=== PATIENT | female | born 1985 | race Caucasian/White ===

== ENCOUNTER 2018-10-17 11:03 | Emergency (ER) | payer BC, OTHER ==
[2018-10-17 11:09] VITALS: TEMP 98.2
--- NOTE | 2018-10-17 11:34 | ED ---
General Adult HPI <Jarrell Vargas - Last Filed: 10/17/18 14:48> - General Source: patient, RN notes reviewed Mode of arrival: ambulatory Limitations: no limitations <Zach Carr - Last Filed: 10/17/18 15:04> - General Chief complaint: Abdominal Pain Stated complaint: poss miscarriage Time Seen by Provider: 10/17/18 11:11 - History of Present Illness Initial comments: Patient 33-year-old female who is G4, P3, approximate 6 weeks by last menstrual cycle, presenting to the emergency room today with chief complaint of abdominal cramping. Patient does admit that she's had this cramping throughout the . She states she follow-up to [facility] and had an an ultrasound earlier in the week. States did not see anything on ultrasound and did not match up with her hCG levels so they have been trending up. She states she had a decrease in hCG. She does admit that she felt some chills last night and was concerned so she came here to the emergency room. She denies any other complaints. Denies any vaginal bleeding or discharge. States cramping is consistent with cramping that she's had throughout the . Patient denies any recent fever, shortness of breath, chest pain, back pain, vomiting, numbness or tingling, headaches or visual changes, or any other complaints. ( Zach Carr) - Related Data Home Medications Medication Instructions Recorded Confirmed Pnv,Calcium 72/Iron/Folic Acid 1 tab PO DAILY 10/17/18 10/17/18 [ Plus Tablet] Allergies Allergy/AdvReac Type Severity Reaction Status Date / Time No Known Allergies Allergy Verified 10/17/18 11:47 Review of Systems ROS Other: All systems not noted in ROS Statement are negative. <Jarrell Vargas - Last Filed: 10/17/18 14:48> ROS Other: All systems not noted in ROS Statement are negative. <Zach Carr - Last Filed: 10/17/18 15:04> ROS Statement: Those systems with pertinent positive or pertinent negative responses have been documented in the HPI. Past Medical History Past Medical History: No Reported History History of Any Multi-Drug Resistant Organisms: None Reported Past Surgical History: No Surgical Hx Reported Past Psychological History: No Psychological Hx Reported Smoking Status: Current every day smoker Past Alcohol Use History: Occasional <Zach Carr - Last Filed: 10/17/18 15:04> General Exam <Jarrell Vargas - Last Filed: 10/17/18 14:48> Limitations: no limitations <Zach Carr - Last Filed: 10/17/18 15:04> - General Exam Comments Initial Comments: General: The patient is awake and alert, in no distress, and does not appear acutely ill. Neck: The neck is supple, there is no tenderness or JVD. Cardiovascular: There is a regular rate and rhythm. No murmur, rub or gallop is appreciated. Respiratory: Lungs are clear to auscultation, respirations are non-labored, breath sounds are equal. No wheezes, stridor, rales, or rhonchi. Gastrointestinal: Soft, non-distended, non-tender abdomen without masses or organomegaly noted. There is no rebound or guarding present. No CVA tenderness. Musculoskeletal: Normal ROM, no tenderness. Neurological: A&O x 3. CN II-XII intact, There are no obvious motor or sensory deficits. Coordination appears grossly intact. Speech is normal. Skin: Skin is warm and dry and no rashes or lesions are noted. Psychiatric: Cooperative, appropriate mood & affect, normal judgment. (Zach Carr) Course <Jarrell Vargas - Last Filed: 10/17/18 14:48> <Zach Carr - Last Filed: 10/17/18 15:04> Vital Signs 10/17/18 10/17/18 11:06 13:55 Temperature 98.2 F Pulse Rate 86 66 Respiratory 16 16 Rate Blood Pressure 118/78 117/68 O2 Sat by Pulse 97 99 Oximetry - Reevaluation(s) Reevaluation #1: 10/17/18 14:48 Patient reevaluated by myself, Dr. Vargas. Patient resting comfortably in bed. Abdomen soft and nontender. Patient states she only had mild cramping earlier. No bleeding. Case was discussed in detail with Dr. Dukes who feels patient is safe for discharge home and recommends follow-up Friday with Dr. Jimenez. Dr. Stock also questions the accuracy of beta hCG level in the specific patient. ( Jarrell Vargas) Medical Decision Making - Lab Data Result diagrams: 10/17/18 11:45 10/17/18 11:45 <Jarrell Vargas - Last Filed: 10/17/18 14:48> - Lab Data Result diagrams: 10/17/18 11:45 10/17/18 11:45 <Zach Carr - Last Filed: 10/17/18 15:04> - Lab Data Lab Results 10/17/18 10/17/18 10/17/18 Range/Units 11:45 11:45 11:45 WBC 7.2 (3.8-10.6) k/uL RBC 4.58 (3.80-5.40) m/uL Hgb 14.4 (11.4-16.0) gm/dL Hct 42.6 (34.0-46.0) % MCV 93.1 (80.0-100.0) fL MCH 31.5 (25.0-35.0) pg MCHC 33.8 (31.0-37.0) g/dL RDW 12.3 (11.5-15.5) % Plt Count 275 (150-450) k/uL Neutrophils % 52 % Lymphocytes % 32 % Monocytes % 6 % Eosinophils % 6 % Basophils % 1 % Neutrophils # 3.8 (1.3-7.7) k/uL Lymphocytes # 2.3 (1.0-4.8) k/uL Monocytes # 0.5 (0-1.0) k/uL Eosinophils # 0.4 (0-0.7) k/uL Basophils # 0.1 (0-0.2) k/uL Sodium 140 (137-145) mmol/L Potassium 4.2 (3.5-5.1) mmol/L Chloride 108 H (98-107) mmol/L Carbon Dioxide 22 (22-30) mmol/L Anion Gap 10 mmol/L BUN 12 (7-17) mg/dL Creatinine 0.52 (0.52-1.04) mg/dL Est GFR (CKD-EPI)AfAm >90 (>60 ml/min/1.73 sqM) Est GFR (CKD-EPI)NonAf >90 (>60 ml/min/1.73 sqM) Glucose 98 (74-99) mg/dL Calcium 9.8 (8.4-10.2) mg/dL Total Bilirubin 0.6 (0.2-1.3) mg/dL AST 34 (14-36) U/L ALT 59 H (9-52) U/L Alkaline Phosphatase 45 (38-126) U/L Total Protein 7.5 (6.3-8.2) g/dL Albumin 4.6 (3.5-5.0) g/dL HCG, Quant 95990.3 mIU/mL Urine Color Urine Appearance (Clear) Urine pH (5.0-8.0) Ur Specific [place] (1.001-1.035) Urine Protein (Negative) Urine Glucose (UA) (Negative) Urine Ketones (Negative) Urine Blood (Negative) Urine Nitrite (Negative) Urine Bilirubin (Negative) Urine Urobilinogen (<2.0) mg/dL Ur Leukocyte Esterase (Negative) Urine RBC (0-5) /hpf Urine WBC (0-5) /hpf Ur Squamous Epith Cells (0-4) /hpf Urine Bacteria (None) /hpf Urine Mucus (None) /hpf Blood Type O Positive Blood Type Recheck [facility] ONLY 10/17/18 Range/Units 11:45 WBC (3.8-10.6) k/uL RBC (3.80-5.40) m/uL Hgb (11.4-16.0) gm/dL Hct (34.0-46.0) % MCV (80.0-100.0) fL MCH (25.0-35.0) pg MCHC (31.0-37.0) g/dL RDW (11.5-15.5) % Plt Count (150-450) k/uL Neutrophils % % Lymphocytes % % Monocytes % % Eosinophils % % Basophils % % Neutrophils # (1.3-7.7) k/uL Lymphocytes # (1.0-4.8) k/uL Monocytes # (0-1.0) k/uL Eosinophils # (0-0.7) k/uL Basophils # (0-0.2) k/uL Sodium (137-145) mmol/L Potassium (3.5-5.1) mmol/L Chloride (98-107) mmol/L Carbon Dioxide (22-30) mmol/L Anion Gap mmol/L BUN (7-17) mg/dL Creatinine (0.52-1.04) mg/dL Est GFR (CKD-EPI)AfAm (>60 ml/min/1.73 sqM) Est GFR (CKD-EPI)NonAf (>60 ml/min/1.73 sqM) Glucose (74-99) mg/dL Calcium (8.4-10.2) mg/dL Total Bilirubin (0.2-1.3) mg/dL AST (14-36) U/L ALT (9-52) U/L Alkaline Phosphatase (38-126) U/L Total Protein (6.3-8.2) g/dL Albumin (3.5-5.0) g/dL HCG, Quant mIU/mL Urine Color Yellow Urine Appearance Cloudy H (Clear) Urine pH 6.0 (5.0-8.0) Ur Specific [place] 1.029 (1.001-1.035) Urine Protein Trace H (Negative) Urine Glucose (UA) Negative (Negative) Urine Ketones Trace H (Negative) Urine Blood Negative (Negative) Urine Nitrite Negative (Negative) Urine Bilirubin Negative (Negative) Urine Urobilinogen 3.0 (<2.0) mg/dL Ur Leukocyte Esterase Large H (Negative) Urine RBC 6 H (0-5) /hpf Urine WBC 5 (0-5) /hpf Ur Squamous Epith Cells 11 H (0-4) /hpf Urine Bacteria Occasional H (None) /hpf Urine Mucus Few H (None) /hpf Blood Type Blood Type Recheck Disposition <Jarrell Vargas - Last Filed: 10/17/18 14:48> Is patient prescribed a controlled substance at d/c from ED?: No Time of Disposition: 15:04 <Zach Carr - Last Filed: 10/17/18 15:04> Clinical Impression: Threatened Disposition: HOME SELF-CARE Condition: Good Instructions: Threatened Miscarriage (ED) Additional Instructions: Please use medication as discussed. Please follow-up with family doctor in the next 2 days of symptoms have not improved. Please return to emergency room if the symptoms increase or worsen or for any other concerns. Referrals: Skylar Adhikari DO [Primary Care Provider] - 1-2 days Cierra Jimenez MD [STAFF PHYSICIAN] - 1-2 days
[2018-10-17 12:16] LABS: Basophils # (A) 0.1 k/uL (0-0.2); Basophils % (A) 1 %; Eosinophils # (A) 0.4 k/uL (0-0.7); Eosinophils % (A) 6 %; HCT 42.6 % (34.0-46.0); HGB 14.4 gm/dL (11.4-16.0); Lymphocytes # (A) 2.3 k/uL (1.0-4.8); Lymphocytes % (A) 32 %; MCH 31.5 pg (25.0-35.0); MCHC 33.8 g/dL (31.0-37.0); MCV 93.1 fL (80.0-100.0); Mean Platelet Volume 7.1; Monocytes # (A) 0.5 k/uL (0-1.0); Monocytes % (A) 6 %; Neutrophils # (A) 3.8 k/uL (1.3-7.7); Neutrophils % (A) 52 %; Platelet Count 275 k/uL (150-450); RBC 4.58 m/uL (3.80-5.40); RDW 12.3 % (11.5-15.5); WBC 7.2 k/uL (3.8-10.6)
[2018-10-17 12:23] LABS: Appearance,Urine Cloudy (Clear); Bacteria,Urine Occasional /hpf; Bilirubin,Urine Negative (Negative); Blood,Urine Negative (Negative); Color,Urine Yellow; Glucose,Urine (UA) Negative (Negative); Ketones,Urine Trace (Negative); Leukocyte Esterase,Urine Large (Negative); Mucus,Urine Few /hpf; Nitrite,Urine Negative (Negative); Protein,Urine Trace (Negative); RBC,Urine 6 /hpf (0-5); Specific Gravity,Urine 1.029 (1.001-1.035); Squamous Epithelial Cell,Urine 11 /hpf (0-4)
[2018-10-17 12:24] LABS: ALT 59 U/L (9-52); AST 34 U/L (14-36); Albumin 4.6 g/dL (3.5-5.0); Alkaline Phosphatase 45 U/L (38-126); Anion Gap 10 mmol/L; Blood Urea Nitrogen 12 mg/dL (7-17); Calcium 9.8 mg/dL (8.4-10.2); Carbon Dioxide 22 mmol/L (22-30); Chloride 108 mmol/L (98-107); Glucose 98 mg/dL (74-99); Potassium 4.2 mmol/L (3.5-5.1); Sodium 140 mmol/L (137-145); Total Bilirubin 0.6 mg/dL (0.2-1.3); Total Protein 7.5 g/dL (6.3-8.2)
--- NOTE | 2018-10-17 12:51 | US ---
EXAMINATION TYPE: Transabdominal DATE OF EXAM: 02/03/18 COMPARISON: NONE CLINICAL HISTORY: Pain. EXAM PERFORMED: Transvaginal (TV) and Transabdominal (TA) EXAM MEASUREMENTS: GESTATIONAL AGE / DATING Physician Established: (6 weeks/3 days) EDC: 06/09/2019 Dates by LMP: (7 weeks/2 days) EDC: 06/03/2019 Dates by First Scan: No previous this is first scan Dates by Current Scan for: (6 weeks/1 days) EDC: 06/11/2019 MATERNAL ANATOMY Uterus: 8.9 x 5.3 x 6.7 cm; Anteverted Right Ovary: 4.2 x 2.4 x 2.3 cm; hypoechoic area measuring 1.9 x 0.9 x 1.7 cm possibly corpus luteum cyst versus other etiology Left Ovary: 3.3 x 1.8 x 1.5 cm; wnl Post CDS / Adnexa: wnl Presence of free fluid: no Presence of corpus luteal cyst: possibly right ovary hypoechoic area measuring 1.9 x 0.9 x 1.7 cm Presence of subchorionic bleed: yes; 1.3 x 0.5 x 1.4 cm GESTATION / SURVEY CRL: 0.5 cm (6 weeks/1 days) MSD: 1.8 cm (6 weeks/1 days) Yolk Sac (normal less than 6mm): not seen Heart Rate: not identified IUP: Questionable Demise versus early gestation Date of LMP: 08/27/2018 Beta HcG (if available): Not available at this time IMPRESSION: INABILITY TO DETECT A HEARTBEAT FETUS OF 6 WEEKS 1 DAY LIKELY REFLECTS DEMISE.
[2018-10-17 13:26] LABS: HCG,Quantitative Serum 25050.3 mIU/mL
[2018-10-17 15:31] VITALS: BP 109/73; PULSE 81; RESP 18
== END 2018-10-17 15:25 | disposition home or self-care (01) ==
LOC: EC 11:03
DX: O20.0 Threatened abortion (principal); O99.331 Smoking (tobacco) complicating pregnancy, first trimester; F17.200 Nicotine dependence, unspecified, uncomplicated; Z3A.01 Less than 8 weeks gestation of pregnancy
CPT/HCPCS: 36415; 76801; 76817; 80053; 81001; 84702; 85025; 86900; 86901; 99284

== ENCOUNTER 2018-11-04 10:26 | Day surgery (SDC) | payer BC, OTHER ==
[2018-10-30 10:58] VITALS: BMI 23.9
[~2018-11-04 10:26] MED LIST: DEXAMETHASONE SOD PHOSPHATE 10 MG/ML 1 ML VIAL IV ONE; HYDROmorphone 0.5 MG/0.5 ML SYRINGE IVP PRN; LACTATED RINGERS 1,000 ML IV SCH; LIDOCAINE 1% 20 ML VIAL (10MG/ML) FOR IV START INTRADERMA PRN; ONDANSETRON 4 MG/2 ML VIAL IVP ONE; Pre Op ABX Message 1 EACH MISC MISCELLANE ONE; SCOPOLAMINE 1.5MG/72HR PATCH TRANSDERM ONE
[2018-11-04] MEDS ORDERED: KETOROLAC 30 MG/ML 1 ML VIAL ONE (12:02)
[2018-11-04] MEDS ORDERED: MIDAZOLAM 2 MG/2 ML VIAL ONE (12:02)
[2018-11-04] MEDS ORDERED: PROPOFOL 10 MG/ML 20 ML VIAL IV ONE (12:02)
[2018-11-04] MEDS ORDERED: fentaNYL (PF) 50 MCG/ML 2 ML AMP ONE (12:02)
[2018-11-04] MEDS ORDERED: SODIUM CHLORIDE 0.9% 1,000 ML IV ONE (12:31)
[2018-11-04 12:40] VITALS: RESP 16; TEMP 98
--- NOTE | 2018-11-04 12:57 | OP ---
OPERATIVE REPORT DATE OF PROCEDURE: 11/04/2018 PREOPERATIVE DIAGNOSES: 1. Missed AB at 6 weeks' gestation. 2. Rh positive blood type. POSTOPERATIVE DIAGNOSIS: Pathology pending. PROCEDURE: Suction dilatation and curettage of the uterine cavity. SURGEON: Cierra Jimenez MD RADIOISOTOPE TECHNICIAN: None. ESTIMATED BLOOD LOSS: 100 mL. FLUID REPLACEMENT: 400 mL crystalloid. Urine 125 mL. FINDINGS: Multiparous cervix, uterus anteverted, anteflexed, 8 week size. No intrauterine defects noted. Blood type O-positive. PROCEDURE DESCRIPTION: Patient was brought to the operating suite where a general anesthetic is administered without difficulty. She is placed in the dorsal lithotomy position. The cervix, vagina, perineal bodies are all prepped and draped in the usual sterile fashion. The appropriate time-out was performed to ensure proper patient and procedural identification. The anterior lip of the cervix was grasped with a double toothed tenaculum. Cervix sounds to a depth of 11 cm in the anteverted position. The cervix is gently and systematically dilated using Hanks dilators, very little resistance is noted. The uterus was curettaged thoroughly with a #8 curved dural curette with appropriate suction pressure. A moderate amount of tissue was sent to pathology for evaluation. All sponge, needle, and instrument counts were correct at the end of the procedure. Patient is brought back to the recovery room in very good condition with stable vital signs including blood pressure 102/49, pulse 65. Toradol was given prior to leaving the operative suite. Patient will follow up with me in the office in 2 weeks. MMODL / IJN: [id number] /
[2018-11-04 13:14] VITALS: BP 116/71; PULSE 86
== END 2018-11-04 13:38 | disposition home or self-care (01) ==
LOC: OR 10:26
PROVIDERS: ATTEND Obstetrics & Gynecology
DX: O02.1 Missed abortion (principal); O41.1410 Placentitis, first trimester, not applicable or unspecified; F17.200 Nicotine dependence, unspecified, uncomplicated
CPT/HCPCS: 86900; 86901; 88305; 86850; 59820; J2250; J1100; J2405; J3010; J1885; J2704

== ENCOUNTER → 2018-11-04 | Outpatient (CLI) | payer BC, OTHER ==
[2018-11-04 10:37] LABS: Basophils # (A) 0.1 k/uL (0-0.2); Basophils % (A) 1 %; Eosinophils # (A) 0.4 k/uL (0-0.7); Eosinophils % (A) 7 %; HCT 40.8 % (34.0-46.0); HGB 13.3 gm/dL (11.4-16.0); Lymphocytes # (A) 2.2 k/uL (1.0-4.8); Lymphocytes % (A) 34 %; MCH 30.9 pg (25.0-35.0); MCHC 32.6 g/dL (31.0-37.0); MCV 94.7 fL (80.0-100.0); Mean Platelet Volume 6.7; Monocytes # (A) 0.3 k/uL (0-1.0); Monocytes % (A) 4 %; Neutrophils # (A) 3.4 k/uL (1.3-7.7); Neutrophils % (A) 52 %; Platelet Count 328 k/uL (150-450); RBC 4.31 m/uL (3.80-5.40); RDW 12.6 % (11.5-15.5); WBC 6.5 k/uL (3.8-10.6)
== END | disposition home or self-care (01) ==
LOC: LABPAT 10:05
PROVIDERS: ATTEND Obstetrics & Gynecology
DX: Z01.812 Encounter for preprocedural laboratory examination (principal); O03.9 Complete or unspecified spontaneous abortion without complication
CPT/HCPCS: 36415; 85025

== ENCOUNTER → 2020-11-27 | Outpatient (CLI) | payer BC ==
[2020-11-28 01:58] LABS: Follicle Stimulating Hormone 3.3 mIU/mL; Luteinizing Hormone 2.8 mIU/mL
[2020-11-28 01:59] LABS: Estradiol 23.3 pg/mL
== END | disposition home or self-care (01) ==
LOC: LABWHC1 15:55
PROVIDERS: ATTEND Obstetrics & Gynecology Obstetrics
DX: E34.9 Endocrine disorder, unspecified (principal)
CPT/HCPCS: 36415; 82670; 83001; 83002; 84144

== ENCOUNTER → 2021-02-12 | Outpatient (CLI) | payer BC | END | disposition home or self-care (01) | LOC: LABWHC1 11:57 | PROVIDERS: ATTEND Obstetrics & Gynecology Obstetrics | DX: Z32.01 Encounter for pregnancy test, result positive (principal) | CPT/HCPCS: 36415; 84144; 84702 ==

== ENCOUNTER → 2021-02-15 | Outpatient (CLI) | payer BC | END | disposition home or self-care (01) | LOC: LABWHC1 12:59 | PROVIDERS: ATTEND Obstetrics & Gynecology Obstetrics | DX: Z32.01 Encounter for pregnancy test, result positive (principal); Z3A.00 Weeks of gestation of pregnancy not specified | CPT/HCPCS: 36415; 84702 ==

== ENCOUNTER 2021-04-13 22:24 | Emergency (ER) | payer BC ==
[2021-04-13 22:38] VITALS: TEMP 98
[2021-04-13] MEDS ORDERED: SODIUM CHLORIDE 0.9% 500 ML 500 ML IV STA (22:52)
[2021-04-13] MEDS ORDERED: SODIUM CHLORIDE 0.9% 1,000 ML IV STA (22:52)
[2021-04-13 23:58] LABS: HCT 38.6 % (34.0-46.0); HGB 12.9 gm/dL (11.4-16.0); MCH 31.2 pg (25.0-35.0); MCHC 33.4 g/dL (31.0-37.0); MCV 93.4 fL (80.0-100.0); Mean Platelet Volume 7.7; Platelet Count 368 k/uL (150-450); RBC 4.13 m/uL (3.80-5.40); RDW 13.1 % (11.5-15.5); WBC 11.4 k/uL (3.8-10.6)
--- NOTE | 2021-04-14 01:04 | US ---
EXAM: US First Trimester , Transabdominal CLINICAL HISTORY: ITS.REASON US Reason: possible miscarriage TECHNIQUE: Real-time transabdominal obstetrical ultrasound of the maternal pelvis and a first trimester with image documentation. COMPARISON: No relevant prior studies available. FINDINGS: Gestation: Single live intrauterine measuring 12 weeks 3 days with heart rate of 153 bpm. Placenta/amniotic fluid: Cannot be adequately evaluated due to the early gestational age. Uterus/cervix: Unremarkable as visualized. Ovaries: Query right corpus luteum. Free fluid: No significant free fluid. IMPRESSION: Single live intrauterine measuring 12 weeks 3 days. <MYCVCSECTION> Communications: 04/14/21 02:02 Call From [facility] on 04/14 01:55 (-04:00)
--- NOTE | 2021-04-14 02:08 | ED ---
Female Urogenital HPI - General Chief complaint: Vaginal Bleeding Stated complaint: 13 Wks preg, Vaginal Bleeding Time Seen by Provider: 04/13/21 22:51 Source: patient Mode of arrival: ambulatory Limitations: no limitations - History of Present Illness Initial comments: This patient is a 36-year-old woman who presents to be evaluated for vaginal bleeding that had started this evening. The patient states she had had a little bit of cramping prior to this. Patient obstetric history is G5, P3, with 1 miscarriage at 9 weeks. She believes she is proximally 13 weeks . The patient denies fever or chills, chest pain, palpitations, dyspnea. No abdominal pain other than the mild cramps. No change in urination or bowel movements. MD Complaint: vaginal bleeding Onset/Timin -: hour(s) Severity: mild Quality: cramping Improves with: none Worsens with: none Last Menstrual Period: 01/09/21 - Related Data Home Medications Medication Instructions Recorded Confirmed Pnv,Calcium 72/Iron/Folic Acid 1 tab PO DAILY 10/17/18 10/30/18 [ Plus Tablet] Allergies Allergy/AdvReac Type Severity Reaction Status Date / Time No Known Allergies Allergy Verified 04/13/21 22:38 Review of Systems ROS Statement: Those systems with pertinent positive or pertinent negative responses have been documented in the HPI. ROS Other: All systems not noted in ROS Statement are negative. Constitutional: Denies: fever, chills Respiratory: Denies: cough, dyspnea Cardiovascular: Denies: chest pain, palpitations, orthopnea, edema, syncope Gastrointestinal: Reports: as per HPI, abdominal pain, constipation. Denies: nausea, vomiting, diarrhea, melena, hematochezia Genitourinary: Reports: as per HPI. Denies: dysuria, frequency, hematuria Musculoskeletal: Denies: back pain Skin: Denies: rash Neurological: Denies: headache, weakness, numbness Hematological/Lymphatic: Denies: easy bleeding Past Medical History Past Medical History: No Reported History Additional Past Medical History / Comment(s): missed ,hx heart murmur as infant,gestational diabetes with prior pregnancies History of Any Multi-Drug Resistant Organisms: None Reported Past Surgical History: No Surgical Hx Reported Past Anesthesia/Blood Transfusion Reactions: No Reported Reaction, Family History of Problems w/ Anesthesia, Motion Sickness Additional Past Anesthesia/Blood Transfusion Reaction / Comment(s): no hx of general anesthesia or blood transfusion,mother and brother have a hard time waking with anesthesia Past Psychological History: No Psychological Hx Reported Smoking Status: Former smoker Past Alcohol Use History: None Reported Past Drug Use History: None Reported - Past Family History Mother Family Medical History: No Reported History General Exam Limitations: no limitations General appearance: alert, in no apparent distress Head exam: Present: atraumatic, normocephalic Eye exam: Present: normal appearance. Absent: scleral icterus, conjunctival in jection Respiratory exam: Present: normal lung sounds bilaterally. Absent: respiratory distress, wheezes, rales, rhonchi, stridor Cardiovascular Exam: Present: regular rate, normal rhythm, normal heart sounds. Absent: systolic murmur, diastolic murmur, rubs, gallop GI/Abdominal exam: Present: soft. Absent: distended, tenderness, guarding, rebound, rigid, mass, pulsatile mass, hernia External exam: Present: normal external exam. Absent: erythema, swelling, lesions, lacerations, ecchymosis Speculum exam: Present: vaginal bleeding (There was one clot that was larger t noonan golf ball sized and mod amount of dark blood in the vaginal vault.). Absent: cervical discharge, foreign body, tissue, laceration By manual exam: Present: normal by manual exam, uterine enlargement (C/W 12 weeks), other (YOSEF mack). Absent: cervical motion tenderness, adnexal tenderness, adnexal mass, uterine tenderness Extremities exam: Present: normal inspection, normal capillary refill. Absent: pedal edema, calf tenderness Back exam: Present: normal inspection. Absent: CVA tenderness (R), CVA ten derness (L) Neurological exam: Present: alert Skin exam: Present: warm, dry, intact, normal color. Absent: rash Course Vital Signs 04/13/21 04/14/21 22:35 02:23 Temperature 98.0 F Pulse Rate 73 78 Respiratory 18 20 Rate Blood Pressure 121/79 134/84 O2 Sat by Pulse 97 98 Oximetry Medical Decision Making - Medical Decision Making Patient is a 36-year-old woman presenting with first trimester bleeding. There was no active bleeding on the exam. The patient cervix is closed to fingertip diameter at the os. The ultrasound normal. Discussed appropriate further care and follow-up for threatened miscarriage, as well as return parameters. - Lab Data Result diagrams: 04/13/21 23:42 Lab Results 04/13/21 04/13/21 Range/Units 23:42 23:42 WBC 11.4 H (3.8-10.6) k/uL RBC 4.13 (3.80-5.40) m/uL Hgb 12.9 (11.4-16.0) gm/dL Hct 38.6 (34.0-46.0) % MCV 93.4 (80.0-100.0) fL MCH 31.2 (25.0-35.0) pg MCHC 33.4 (31.0-37.0) g/dL RDW 13.1 (11.5-15.5) % Plt Count 368 (150-450) k/uL MPV 7.7 HCG, Quant 057363.0 mIU/mL Disposition Clinical Impression: Threatened Disposition: HOME SELF-CARE Condition: Good Instructions (If sedation given, give patient instructions): Threatened Miscarriage (ED) Is patient prescribed a controlled substance at d/c from ED?: No Referrals: Nonstaff,Physician [Primary Care Provider] - 1-2 days
[2021-04-14 02:24] VITALS: BP 134/84; PULSE 78; RESP 20
== END 2021-04-14 02:36 | disposition home or self-care (01) ==
LOC: EC 22:24
DX: O20.0 Threatened abortion (principal); Z3A.13 13 weeks gestation of pregnancy; Z87.891 Personal history of nicotine dependence
CPT/HCPCS: 36415; 76801; 84702; 85027; 99284

== ENCOUNTER 2021-10-09 17:10 | Outpatient (CLI) | payer BC ==
[2021-10-09 18:25] VITALS: BP 122/59; PULSE 84; RESP 18; TEMP 98.1
--- NOTE | 2021-11-23 09:29 | P.MSEPDOC ---
Presenting Problems - Arrival Data Date of Arrival on Unit: 10/09/21 Time of Arrival on Unit: 17:10 Mode of Transport: Ambulatory - Complaint OB-Reason for Admission/Chief Complaint: Rule Out SROM Comment: pt reports leaking x2 day with "bigger gush" today around 1500. Medical History - Information : 5 Para: 3 Term: 3 : 0 Abortions: Spontaneous or Elective: 0 Number of Living Children: 3 - Gestational Age Gestational Age by MILIND (wks/days): 38 Weeks and 4 Days Review of Systems - Review of Systems Constitutional: No problems Breast: No problems ENT: No problems Cardiovascular: No problems Respiratory: No problems Gastrointestinal: No problems Genitourinary: No problems Musculoskeletal: No problems Neurological: No problems Skin: No problems Vital Signs - Temperature Temperature: 98.1 F Temperature Source: Oral - Pulse Right Pulse Rate: 84 Pulse Assessment Method: Pulse Oximetry - Respirations Respiratory Rate: 18 Oxygen Delivery Method: Room Air O2 Sat by Pulse Oximetry: 100 - Blood Pressure Right Arm Blood Pressure: 122/59 Blood Pressure Mean: 80 Blood Pressure Source: Automatic Cuff Medical Screen Scoring - Cervical Exam Dilation (cm): 5 Effacement (%): 50 Station: -3 Membranes: Intact - Assessment - Baby A Baseline FHR: 140 Heart Rate - NICHD Category: Category I (Normal) NST: Reactive Physician Notification - Physician Notified Physician Notified Date: 10/09/21 Physician Notified Time: 17:53 Physician: Ariela Stock New Order Received: Yes (discharge home with follow up instructions.) Maternal Triage Index - Stat/Priority 1 Stat Priority 1: Yes Provider Notified: Ariela Stock Provider Notified Time: 17:53 Criteria Met for Priority 1: Rule out SROM Disposition - Disposition OB Disposition: Discharge to home Discharge Date: 10/09/21 Discharge Time: 17:53 I agree with the RN Medical Screening Exam: Yes Case reviewed; plan agreed upon as documented in EMR&OBIX.: Yes Diagnosis: FALSE LABOR AT OR AFTER 37 COMPLETED WEEKS OF GESTATION
== END 2021-10-09 17:56 | disposition home or self-care (01) ==
LOC: FBPOP 17:10
PROVIDERS: ATTEND Obstetrics & Gynecology Obstetrics
DX: O47.1 False labor at or after 37 completed weeks of gestation (principal); Z3A.38 38 weeks gestation of pregnancy
CPT/HCPCS: 59025; 84112; 99213

== ENCOUNTER 2021-10-10 10:19 | Inpatient (IN) | payer BC ==
[2021-10-10] MEDS ORDERED: METHYLERGONOVINE 0.2 MG/ML 1 ML AMP IM PRN (10:51)
[2021-10-10] MEDS ORDERED: LIDOCAINE 0.5% (PF) 5 MG/ML (50 ML SDV) SQ PRN (10:51)
[2021-10-10] MEDS ORDERED: CARBOPROST TROMETHAMINE 250 MCG/ML 1 ML AMP IM PRN (10:51)
[2021-10-10] MEDS ORDERED: OXYTOCIN 10 UNIT/ML 1 ML VIAL IM PRN (10:51)
[2021-10-10] MEDS ORDERED: TERBUTALINE 1 MG/ML VIAL SQ PRN (10:51)
[2021-10-10 10:57] VITALS: RESP 16
[2021-10-10 11:00] LABS: Glucose,Whole Blood 96 mg/dL (75-99)
[2021-10-10 11:07] LABS: Basophils % (A) 1 %; Eosinophils # (A) 0.1 k/uL (0-0.7); Eosinophils % (A) 2 %; HGB 11.4 gm/dL (11.4-16.0); Lymphocytes # (A) 2.3 k/uL (1.0-4.8); Lymphocytes % (A) 30 %; MCH 31.4 pg (25.0-35.0); MCHC 33.7 g/dL (31.0-37.0); MCV 93.4 fL (80.0-100.0); Mean Platelet Volume 9.3; Monocytes # (A) 0.4 k/uL (0-1.0); Monocytes % (A) 6 %; Neutrophils # (A) 4.6 k/uL (1.3-7.7); Neutrophils % (A) 61 %; Platelet Count 247 k/uL (150-450); RBC 3.64 m/uL (3.80-5.40); RDW 13.2 % (11.5-15.5); WBC 7.7 k/uL (3.8-10.6)
[2021-10-10] MEDS: LACTATED RINGERS 1,000 ML IV SCH ×2 (11:07→11:48)
[2021-10-10] MEDS ORDERED: SODIUM CHLORIDE 0.9% 100 ML BAG ONE (11:29)
[2021-10-10] MEDS ORDERED: ROPIVACAINE 5MG/ML 20ML VIAL ONE (11:29)
[2021-10-10] MEDS ORDERED: fentaNYL (PF) 50 MCG/ML 5 ML AMP ONE (11:29)
--- NOTE | 2021-10-10 12:18 | P.HPOB ---
History of Present Illness H&P Date: 10/10/21 Chief Complaint: Active labor This is a 36-year-old female 5 para 3013 EDC 10/19/2021 at 38-4/7 weeks' gestation. Patient presents in active labor, cervical exam 7 cm in the office. Fetus is been active throughout the . She denies vaginal bleeding or fluid leakage. Past medical history is significant for gestational diabetes, heart murmur, depression in the past. Past surgical history D&C for missed AB 2018. Current medications vitamin daily, Colace when necessary, vitamin D daily, baby aspirin daily. ALLERGIES none known. Family history significant for hypertension, heart murmur, seizure disorder, craniosynostosis, cleft palate, scoliosis. Reproductive history is significant for vaginal deliveries 3. Social history patient is , she is a former tobacco smoker, she denies alcohol or drug use. Obstetric history blood type is O+, rubella status immune. VDRL testing, urine culture, gonorrhea and chlamydia cultures, HIV testing, hepatitis B surface antigen, group B strep cultures all negative. Three-hour GTT consistent with gestational diabetes. On examination patient is 5 foot 7 inches, 188 pounds, vital signs are stable and she is afebrile. General physical exam is within normal limits. Cervix is 8 cm dilated, 70% effaced, -1 station, vertex presentation. Artificial amniorrhexis reveals clear fluid. heart rate is consistent with reactive NST. Impression: 38-4/7 weeks intrauterine , labor, advanced maternal age, all signs reassuring. Plan: Epidural has been placed per the patient's request. Close maternal and surveillance. Anticipate normal spontaneous vaginal delivery. Review of Systems Constitutional: Reports as per HPI Past Medical History Past Medical History: No Reported History Additional Past Medical History / Comment(s): missed ,hx heart murmur as ,gestational diabetes with prior pregnancies History of Any Multi-Drug Resistant Organisms: None Reported Past Surgical History: No Surgical Hx Reported Past Anesthesia/Blood Transfusion Reactions: No Reported Reaction, Family History of Problems w/ Anesthesia, Motion Sickness Additional Past Anesthesia/Blood Transfusion Reaction / Comment(s): no hx of general anesthesia or blood transfusion,mother and brother have a hard time waking with anesthesia Past Psychological History: No Psychological Hx Reported Smoking Status: Former smoker Past Alcohol Use History: None Reported Additional Past Alcohol Use History / Comment(s): started smoking at age teen,on and off <1/2 ppd Past Drug Use History: None Reported - Past Family History Mother Family Medical History: No Reported History Medications and Allergies Home Medications Medication Instructions Recorded Confirmed Type Pnv,Calcium 72/Iron/Folic Acid 1 tab PO DAILY 10/17/18 10/10/21 History [ Plus Tablet] Aspirin 81 mg PO DAILY 10/09/21 10/10/21 History Cholecalciferol (Vitamin D3) 125 mcg PO DAILY 10/09/21 10/10/21 History [Vitamin D3 (125 MCG = 5,000 IU)] Docusate [Colace] 100 mg PO DAILY 10/09/21 10/10/21 History Insulin Aspart (Niacinamide) 10 - 14 units SQ TID-W/MEALS 10/09/21 10/10/21 History [Fiasp 100 Unit/ml Flextouch Pen] Insulin Degludec [Tresiba] 4 units SQ HS 10/09/21 10/10/21 History Allergies Allergy/AdvReac Type Severity Reaction Status Date / Time No Known Allergies Allergy Verified 10/10/21 10:51 Exam Vital Signs Temp Pulse Resp BP Pulse Ox 10/10/21 10:54 97.7 F 86 16 143/82 98 Intake and Output 10/09/21 10/10/21 10/10/21 22:59 06:59 14:59 Other: Weight 85.275 kg He dictation under HPI please Results Result Diagrams: 10/10/21 11:00 Abnormal Lab Results - Last 24 Hours (Table) 10/10/21 Range/Units 11:00 RBC 3.64 L (3.80-5.40) m/uL Assessment and Plan Assessment: 38-4/7 weeks intrauterine , active labor. Advanced maternal age. Gestational diabetes, all signs reassuring. Plan: Close maternal and surveillance. Anticipate normal spontaneous vaginal delivery. Time with Patient: Less than 30
[2021-10-10] MEDS: OXYTOCIN 30 UNITS/500 ML NS 30 UNIT in SALINE 1 500ML.BAG IV SCH ×2 (14:08→17:11)
[2021-10-10] MEDS ORDERED: BENZOCAINE/MENTHOL SPRAY 1 GM/SPRAY AEROSOL TOPICAL PRN (15:12)
[2021-10-10] MEDS ORDERED: SIMETHICONE 80 MG CHEWABLE PO PRN (15:12)
[2021-10-10] MEDS ORDERED: diphenhydrAMINE 50 MG/ML 1 ML VIAL IVP PRN ×2 (15:12)
[2021-10-10] MEDS ORDERED: HYDROCORTISONE 2.5% RECTAL CREAM 30 GM TUBE RECTAL PRN (15:12)
[2021-10-10] MEDS ORDERED: LANOLIN CREAM 5 GM TUBE TOPICAL PRN (15:12)
[2021-10-10] MEDS ORDERED: diphenhydrAMINE 50 MG CAP PO PRN (15:12)
[2021-10-10] MEDS ORDERED: diphenhydrAMINE 25 MG CAP PO PRN (15:12)
[2021-10-10] MEDS ORDERED: ZOLPIDEM 5 MG TAB PO PRN (15:12)
--- NOTE | 2021-10-10 15:12 | P.PROBDLV ---
Vaginal Delivery Note - . Vaginal Delivery Note: This is a 36-year-old female 5 para 3013 EDC 10/19/2021 at 38-4/7 weeks' gestation. Patient presented from the office at 7 cm dilated with back pain. remarkable for gestational diabetes, on insulin with good control. Rupee strep cultures negative. Blood type O+. Rubella status immune. Please see dictated history and physical for details. Artificial amniorrhexis revealed clear fluid. Epidural was placed per her request. Oxytocin augmentation was started. Patient progressed well through the first stage of labor was judged to be completely dilated at 1432 hrs. Perineal body was prepped and draped in usual sterile fashion. With excellent maternal expulsive efforts station was made. 's head delivered occiput anterior and she restituted accordingly. There was a nuchal cord 1 that was reduced. The right or anterior shoulder was delivered easily from underneath the pubic symphysis at which time the oropharynx, nasopharynx, and external nares were all bulb suctioned. Patient was officially delivered of a liveborn female at 1452 hrs. Umbilical cord was doubly clamped and ligated, she was handed to waiting nurses for evaluation where scores of 8 and 8 at one and 5 minutes respectively were given. Placenta delivered spontaneously, it was inspected and noted to be intact with trivascular cord at 1457 hrs. Uterus is then massaged. Despite oxytocin, bleeding was somewhat brisk, therefore Methergine 1 was given with immediate response. Careful inspection of the cervix, vagina, perineum, periurethral, and perirectal areas revealed a very small first-degree midline laceration at 6:00, easily repaired with a single [id number] suture of repeat. 's weight 7 lbs. 12 oz. or 3500 g. Total estimated blood loss 300 mL's. All sponge needle and enhancement counts are correct. Patient and her family are allowed to begin the bonding experience in the LDR.
[2021-10-10] MEDS ORDERED: IBUPROFEN 400 MG TAB PO PRN (16:20)
[2021-10-10] MEDS ORDERED: ACETAMINOPHEN TAB 500 MG TAB PO PRN (16:21)
[2021-10-11] MEDS: SENNOSIDES-DOCUSATE SODIUM 1 EACH TAB PO SCH ×3 (04:28→20:04)
--- NOTE | 2021-10-11 07:48 | P.DS ---
Providers Date of admission: 10/10/21 10:34 Expected date of discharge: 10/11/21 Attending physician: Cierra Jimenez Primary care physician: Stated None Hospital Course: This is a 36-year-old female 5 para 3013 EDC 10/19/2021 at 38-4/7 weeks' gestation who presented from the office with advanced cervical dilatation, cervical exam 7 cm in the office. is remarkable for gestational diabetes, on insulin. Rupee strep cultures negative, blood type O positive, rubella status immune. Please see dictated history and physical for details. Artificial amniorrhexis revealed clear. Fluid. Epidural was placed per her request. Oxytocin augmentation was given. Patient went on to deliver a liveborn female with scores of 8 and 8 at one and 5 minutes respectively. There was a nuchal cord 1 that was reduced, a small first-degree perineal laceration easily repaired, and an estimated blood loss of 300 mL's. Infant weighed 3500 g or 7 lbs. 12 oz. Please see dictated delivery note for details. This morning the patient is doing well. She is voiding, ambulating, passing flatus without difficulty. Vital signs are stable and she is afebrile. Fundus is firm and in the midline, symmetric and 18 week size. Extremities are negative for edema. is doing well. Breast-feeding is going well. Patient is judged to be in very good condition for discharge home. She will follow-up with me in the office in 6 weeks. I have reminded her no intercourse, tampons or douching. She will use [id number] Advil or Aleve, or Motrin as needed for pain. She will call with any fevers shakes or chills, foul smelling or copious lochia, with the passage of large blood clots, with any pain not alleviated by [id number] products, or indeed with any concerns. Assessment: Doing well day #1 Patient Condition at Discharge: Good Plan - Discharge Summary Discharge Rx Participant: No New Discharge Prescriptions: No Action Pnv,Calcium 72/Iron/Folic Acid [ Plus Tablet] 1 tab PO DAILY Docusate [Colace] 100 mg PO DAILY Cholecalciferol (Vitamin D3) [Vitamin D3 (125 MCG = 5,000 IU)] 125 mcg PO DAILY Insulin Degludec [Tresiba] 4 units SQ HS Aspirin 81 mg PO DAILY Insulin Aspart (Niacinamide) [Fiasp 100 Unit/ml Flextouch Pen] 10 - 14 units SQ TID-W/MEALS Discharge Medication List Pnv,Calcium 72/Iron/Folic Acid [ Plus Tablet] 1 tab PO DAILY 10/17/18 [History] Aspirin 81 mg PO DAILY 10/09/21 [History] Cholecalciferol (Vitamin D3) [Vitamin D3 (125 MCG = 5,000 IU)] 125 mcg PO DAILY 10/09/21 [History] Docusate [Colace] 100 mg PO DAILY 10/09/21 [History] Insulin Aspart (Niacinamide) [Fiasp 100 Unit/ml Flextouch Pen] 10 - 14 units SQ TID-W/MEALS 10/09/21 [History] Insulin Degludec [Tresiba] 4 units SQ HS 10/09/21 [History] Follow up Appointment(s)/Referral(s): Cierra Jimenez MD [STAFF PHYSICIAN] - 6 Weeks Discharge Disposition: HOME SELF-CARE
[2021-10-12] MEDS ORDERED: IBUPROFEN 600 MG TAB PO PRN (04:06)
[2021-10-12] MEDS: SENNOSIDES-DOCUSATE SODIUM 1 EACH TAB PO SCH (08:21)
[2021-10-12 09:09] VITALS: BP 129/79; PULSE 68; TEMP 98.6
== END 2021-10-12 14:26 | disposition home or self-care (01) | DRG 807 ==
LOC: 4FBP 10:34
PROVIDERS: ADMIT Obstetrics & Gynecology; ATTEND Obstetrics & Gynecology
PROC: 10E0XZZ Delivery of Products of Conception, External Approach (ICD-10-PCS; principal; 2021-10-10)
PROC: 0HQ9XZZ Repair Perineum Skin, External Approach (ICD-10-PCS; 2021-10-10)
PROC: 10907ZC Drainage of Amniotic Fluid, Therapeutic from Products of Conception, Via Natural or Artificial Opening (ICD-10-PCS; 2021-10-10)
PROC: 4A0HXCZ Measurement of Products of Conception, Cardiac Rate, External Approach (ICD-10-PCS; 2021-10-10)
PROC: 3E033VJ Introduction of Other Hormone into Peripheral Vein, Percutaneous Approach (ICD-10-PCS; 2021-10-10)
DX: O24.424 Gestational diabetes mellitus in childbirth, insulin controlled (principal); Z37.0 Single live birth; O70.0 First degree perineal laceration during delivery; O69.81X0 Labor and delivery complicated by cord around neck, without compression, not applicable or unspecified; Z3A.38 38 weeks gestation of pregnancy; Z79.82 Long term (current) use of aspirin; Z87.891 Personal history of nicotine dependence; Z87.59 Personal history of other complications of pregnancy, childbirth and the puerperium
CPT/HCPCS: 85025; 86850; 86900; 86901